=== PATIENT | female | born 1940 | race Caucasian/White ===

== ENCOUNTER → 2016-11-21 | Outpatient (CLI) | payer MEDICARE, OTHER ==
[~2016-11-21] MED LIST: AMLODIPINE BES2.5 MG PO; ATENOLOL100 MG PO; BENAZEPRIL20 MG PO; BENAZEPRIL40 MG PO; CEFDINIR 300MG300 MG PO; CELEBREX 200MG200 MG PO; CIPROFLOXACIN500 MG PO; CYMBALTA60 MG PO; DUONEB 3 MG/3 ML3 ML IH; FLAGYL 500MG.500 MG PO; GABAPENTIN 400400 MG PO; GABAPENTIN800 MG PO; HYDROCHLOROTH12.5 M1 PO; HYDROCHLOROTHIA25 M1 PO; K-TAB20 MEQ PO; LEVAQUIN 750 M750 MG PO; LEVAQUIN500 MG PO; LIPITOR40 M1 PO; LORATADINE10 M1 PO; NASACORT A55 MCG/ACT NS; NEXIUM40 MG PO; POTASSIUM CHLO20 ME2 PO; PREDNICOT20 MG PO; PREDNISONE20 MG PO; REGLAN 10 MG TA10 MG PO; SINGULAIR 10 MG10 MG PO; SYMBICORT1 AE1 IH; TRICOR145 M1 PO; VENTOLIN H0.09 MG/AC IH; VITAMIN D50000 I1 PO
[2016-11-21 10:37] LABS: BUN 9 mg/dL (7-18); GFR (ESTIMATED) 61 ML/MIN (59-)
== END ==
LOC: LAB 09:24
PROVIDERS: Family Medicine
DX: R10.31 Right lower quadrant pain (principal); R22.1 Localized swelling, mass and lump, neck

== ENCOUNTER → 2016-11-23 | Outpatient (CLI) | payer MEDICARE, OTHER ==
--- NOTE | 2016-11-23 16:14 | RADIOLOGY REPORT PS360 ---
US SOFT TISSUE HEAD/NECK HISTORY: Palpable nodule behind left ear NECK MASS ORDERING PHYSICIAN: Serge Orta MD PATIENT AGE: 76 years COMPARISON: None FINDINGS: General survey is performed in the left retroauricular region. No sonographic abnormalities are detected. Similar appearance is noted behind the right anterior. IMPRESSION: Negative limited ultrasound with no sonographic abnormalities behind the left ear. If symptoms persist, consider CT for more thorough evaluation
--- NOTE | 2016-11-30 09:24 | RADIOLOGY REPORT PS360 ---
CT ABD PELVIS W/WO CONTRAST INDICATION: Right lower quadrant pain, persistent urinary tract infection RLQ PAIN ORDERING PHYSICIAN: Serge Orta MD PATIENT AGE: 76 years COMPARISON: None TECHNIQUE: Axial images are obtained without and with contrast. Sagittal and coronal reformatted images are reviewed as well. FINDINGS: Abdomen: There are mild atelectatic or fibrotic changes in the lung bases. The liver, spleen, adrenal glands, and pancreas has an unremarkable CT appearance. There has been a prior cholecystectomy. No biliary dilatation. There is mild diffuse thickening of the wall of the stomach on all 3 image sets. Gastritis is a consideration. A diffuse infiltrative process such as neoplasm/lymphoma would be included in the differential diagnosis. There is a prominent duodenal diverticulum projecting medially into the head of the pancreas. Kidneys: No renal calculi or hydronephrosis is evident. There is some mild cortical scarring of the left kidney. Left kidney is smaller than the right side atherosclerotic plaque is present at the ostium of both renal arteries appear somewhat more extensive at the proximal left renal artery. Pelvis: No intestinal obstruction or free air is evident. No evidence of appendicitis. There are some diverticula involving the right colon but no evidence of diverticulitis. The appendix is not definitely identified however, there are no secondary signs of appendicitis. There is diverticulosis of the descending and sigmoid colon. No evidence of diverticulitis. Prior hysterectomy. No focal inflammatory change or pelvic mass evident. Vascular: There is a fusiform infrarenal abdominal aortic aneurysm which measures up to 3.5 cm transverse and 4 cm AP with a small saccular component anteriorly at the L3 level. There is a mild amount of intramural thrombus. The aneurysm begins 1.4 cm below the level the renal arteries and ends 1.7 cm above the aortic bifurcation. Atherosclerotic changes involving the aortoiliac vessels. Bones and soft tissues: Severe degenerative disc disease at T12-L1, L3-L4 and L4-L5 with bony sclerosis of the endplates IMPRESSION: 1. Diffuse thickening of the wall the stomach which may be seen with gastritis. Neoplasm not entirely excluded. 2. 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 3. 4 x 3.5 cm fusiform infrarenal abdominal aortic aneurysm with small saccular component anteriorly. 4. Diverticulosis of the colon without diverticulitis. 5. Other nonacute findings as described above.
== END ==
LOC: RAD 09:48
DX: R22.1 Localized swelling, mass and lump, neck (principal); R10.31 Right lower quadrant pain
CPT/HCPCS: Q9967